=== PATIENT | male | born 1945 | race Caucasian/White ===

== ENCOUNTER 2019-07-30 12:21 | Emergency (ER) | payer MEDICARE ==
[2019-07-30] MEDS ORDERED: Albuterol/Ipratropium 3.0-0.5 MG/3 ML Neb Soln NEB ONE (12:46)
[2019-07-30] MEDS ORDERED: predniSONE 20 MG Tab PO ONE (13:40)
[2019-07-30 14:03] LABS: BLOOD UREA NITROGEN,BUN 20 mg/dL (7.0-18.0); CARBON DIOXIDE,CO2 30.8 mmol/L (21.0-32.0); CHLORIDE,CL 101 mmol/L (98-107); GLUCOSE RANDOM 125 mg/dL (74-106); SODIUM,NA 139 mmol/L (136-148)
--- NOTE | 2019-07-30 15:02 | EDM.PDOC ---
ED HPI GENERAL MEDICAL PROBLEM - General Chief Complaint: Respiratory Problem Stated Complaint: SHORTNESS OF BREATH Time Seen by Provider: 07/30/19 13:30 Source of Information: Reports: Patient History Limitations: Reports: No Limitations - History of Present Illness INITIAL COMMENTS - FREE TEXT/NARRATIVE: Patient is a 74-year-old male with a past medical history of COPD presenting with a chief complaint of worsening shortness of breath. Patient states he has been coughing and increasingly short of breath over the past 2 to 3 days. Patient has been afebrile during this period of time. Patient does not have any pain in his chest at all. Patient complains of wheezing and also having run out of his COPD medications. Patient denies any recent travel, lower extremity swelling, history of DVT or PE. Does report prior history of fluid on his lungs back in the early s which was drained. Is unsure of the etiology of the fluid. In addition to that documented in the HPI above, the additional ROS was obtained : Constitutional: Denies fevers or chills Eyes: Denies vision changes ENMT: Denies sore throat CV: Denies chest pain Resp: D HPI GI: Denies vomiting or diarrhea : Denies painful urination MSK: Denies recent trauma Skin: Denies new rashes Neuro: Denies new numbness or tingling or weakness Endocrine: Denies unexpected weight loss Heme: Denies bleeding disorders I have reviewed the triage vital signs Const: Well nourished, well developed, appears stated age Eyes: PERRL, no conjunctival injection HENT: NCAT, Neck supple without meningismus CV: RRR, Warm, well-perfused extremities RESP: CTAB, Unlabored respiratory effort GI: soft, non-tender, non-distended, no masses MSK: No gross deformities appreciated Skin: Warm, dry. 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 Sensation and motor function of extremities grossly intact. Psych: Appropriate mood and affect Assessment and plan Patient is a 74-year-old male with complaints of shortness of breath. Patient' s labs were noted within normal limits. Patient received steroids and nebulizer treatment with improvement of his shortness of breath. Patient has CT findings concerning for complicated pleural effusion which appears to be chronic in nature given calcifications. At this point, no think these are infectious in nature and will require outpatient work-up and follow-up. Patient does not require admission for respiratory status as his symptoms have improved. Patient given urgency of follow-up and will make an appointment tomorrow. All questions addressed and answered. Patient agrees with plan - Related Data Allergies Allergy/AdvReac Type Severity Reaction Status Date / Time Penicillins Allergy Itching Verified 07/30/19 12:35 Past Medical History Respiratory History: Reports: COPD Musculoskeletal History: Reports: Back Pain, Chronic, Fracture Other Musculoskeletal History: chronic leg pain Social & Family History - Family History Family Medical History: Noncontributory - Tobacco Use Smoking Status *Q: Never Smoker - Recreational Drug Use Recreational Drug Use: No ED ROS GENERAL - Review of Systems Review Of Systems: See Below ED EXAM, GENERAL - Physical Exam Exam: See Below Course - Vital Signs Last Recorded V/S: Last Vital Signs Temp 36.6 C 07/30/19 15:48 Pulse 78 07/30/19 15:48 Resp 24 H 07/30/19 12:35 BP 178/105 H 07/30/19 15:48 Pulse Ox 94 L 07/30/19 15:48 - Orders/Labs/Meds Orders: Active Orders 24 hr Category Date Time Status EKG Documentation Completion [RC] STAT Care 07/30/19 12:45 Active RT Aerosol Therapy [RC] ASDIRECTED Care 07/30/19 12:46 Active Labs: Laboratory Tests 07/30/19 07/30/19 Range/Units 13:13 13:13 WBC 11.12 H (4.0-11.0) K/uL RBC 5.18 (4.50-5.90) M/uL Hgb 15.5 (13.0-17.0) g/dL Hct 47.8 (38.0-50.0) % MCV 92.3 (80.0-98.0) fL MCH 29.9 (27.0-32.0) pg MCHC 32.4 (31.0-37.0) g/dL RDW Std Deviation 45.8 (28.0-62.0) fl RDW Coeff of Tushar 14 (11.0-15.0) % Plt Count 245 (150-400) K/uL MPV 10.80 (7.40-12.00) fL Neut % (Auto) 75.1 (48.0-80.0) % Lymph % (Auto) 14.0 L (16.0-40.0) % [place] % (Auto) 7.6 (0.0-15.0) % Eos % (Auto) 2.9 (0.0-7.0) % Baso % (Auto) 0.4 (0.0-1.5) % Neut # (Auto) 8.4 H (1.4-5.7) K/uL Lymph # (Auto) 1.6 (0.6-2.4) K/uL [place] # (Auto) 0.8 (0.0-0.8) K/uL Eos # (Auto) 0.3 (0.0-0.7) K/uL Baso # (Auto) 0.1 (0.0-0.1) K/uL Nucleated RBC % 0.0 /100WBC Nucleated RBCs # 0 K/uL Sodium 139 (136-148) mmol/L Potassium 4.0 (3.5-5.1) mmol/L Chloride 101 (98-107) mmol/L Carbon Dioxide 30.8 (21.0-32.0) mmol/L BUN 20 H (7.0-18.0) mg/dL Creatinine 0.9 (0.8-1.3) mg/dL Est Cr Clr Drug Dosing TNP Estimated GFR (MDRD) > 60.0 ml/min Glucose 125 H (74-106) mg/dL Calcium 9.4 (8.5-10.1) mg/dL Total Bilirubin 0.5 (0.2-1.0) mg/dL AST 21 (15-37) IU/L ALT 24 (14-63) IU/L Alkaline Phosphatase 86 (46-116) U/L Troponin I < 0.050 (0.000-0.056) ng/mL Total Protein 7.6 (6.4-8.2) g/dL Albumin 3.6 (3.4-5.0) g/dL Globulin 4.0 (2.6-4.0) g/dL Albumin/Globulin Ratio 0.9 (0.9-1.6) Meds: Medications Discontinued Medications Generic Name Dose Route Start Last Admin Trade Name Freq PRN Reason Stop Dose Admin Albuterol/Ipratropium 3 ml 07/30/19 12:46 01/07/20 12:54 Duoneb 3.0-0.5 Mg/3 Ml NEB 07/30/19 12:47 3 ml ONETIME ONE Administration Prednisone 60 mg 07/30/19 13:40 07/30/19 13:48 Prednisone PO 07/30/19 13:41 60 mg ONETIME ONE Administration Departure - Departure Time of Disposition: 16:35 Disposition: Home, Self-Care 01 Clinical Impression: COPD (chronic obstructive pulmonary disease) - Discharge Information Instructions: Chronic Obstructive Pulmonary Disease Exacerbation, [id number] Referrals: PCP,None [Primary Care Provider] - Forms: ED Department Discharge Additional Instructions: The following information is given to patients seen in the emergency department who are being discharged to home. This information is to outline your options for follow-up care. We provide all patients seen in our emergency department with a follow-up referral. The need for follow-up, as well as the timing and circumstances, are variable depending upon the specifics of your emergency department visit. If you don't have a primary care physician on staff, we will provide you with a referral. We always advise you to contact your personal physician following an emergency department visit to inform them of the circumstance of the visit and for follow-up with them and/or the need for any referrals to a consulting specialist. The emergency department will also refer you to a specialist when appropriate. This referral assures that you have the opportunity for follow-up care with a specialist. All of these measure are taken in an effort to provide you with optimal care, which includes your follow-up. Under all circumstances we always encourage you to contact your private physician who remains a resource for coordinating your care. When calling for follow-up care, please make the office aware that this follow-up is from your recent emergency room visit. If for any reason you are refused follow-up, please contact the [facility] Emergency Department at and asked to speak to the emergency department charge nurse. You have findings in your lungs that require further testing and follow-up care. Please schedule an appointment with the family medicine clinic for further evaluation and testing. Sepsis Event Note - Evaluation Sepsis Screening Result: Possible Sepsis Risk - Focused Exam Vital Signs: Vital Signs Temp Pulse Resp BP Pulse Ox 07/30/19 15:48 36.6 C 78 178/105 H 94 L 07/30/19 12:35 35.5 C 97 24 H 204/111 H 93 L Date Exam was Performed: 07/30/19 Time Exam was Performed: 16:30
--- NOTE | 2019-07-30 15:48 | CR ---
Chest: AP portable view of the chest was obtained. Comparison: No previous chest x-ray. Poorly penetrated left lung base is seen. Difficult to exclude underlying pleural or parenchymal process. Lungs otherwise are clear. Heart size appears within normal limits for portable technique. Upper mediastinum is within normal limits for portable technique. Impression: 1. Poorly penetrated left lung base. Cannot exclude underlying pleural or parenchymal process. 2. Portable chest x-ray is otherwise unremarkable. Note: For further evaluation of the chest, consider upright PA and lateral view study. Diagnostic code #2 This report was dictated in [place] Standard Time
--- NOTE | 2019-07-30 16:23 | CT ---
CT chest Technique: Multiple axial sections through the chest were obtained. Intravenous contrast was not utilized. Comparison: No prior chest CT, previous chest x-ray performed earlier on the same day (1:19 PM). Findings: Complicated loculated fluid collections are seen posteriorly within both lung bases showing surrounding calcifications. Findings presumably are chronic. Etiology is otherwise nonspecific. Small portion of the upper abdominal structures are unremarkable. No pericardial thickening is seen. Aorta shows atherosclerotic change without aneurysm. Mediastinum and hilar region show no adenopathy. Lungs show no acute parenchymal change. Bone window settings were reviewed which shows no acute osseous finding. Impression: 1. Complicated loculated fluid collections posteriorly within both lung bases with surrounding peripheral calcifications. As mentioned above, findings presumably are chronic but are otherwise nonspecific regarding etiology. 2. Nothing acute is otherwise seen. Diagnostic code #3 This report was dictated in [place] Standard Time
== END 2019-07-30 16:53 | disposition home or self-care (01) ==
LOC: MW.ED 12:21
DX: J44.9 Chronic obstructive pulmonary disease, unspecified (principal); Z88.0 Allergy status to penicillin
CPT/HCPCS: 36415; 71045; 71250; 80053; 84484; 85025; 93005; 94640; 99285; A9270; 99283; J7620-GY

== ENCOUNTER 2023-08-28 13:09 | Inpatient (IN) | payer MEDICARE ==
[2023-08-28] MEDS: Ipratropium 0.02% 0.5 MG/2.5 ML Neb Soln NEB ONE (13:34)
[2023-08-28] MEDS: Albuterol/Ipratropium 3.0-0.5 MG/3 ML Neb Soln NEB ONE (13:34)
[2023-08-28 13:39] LABS: BASOPHILS ABSOLUTE AUTO 0.02 K/uL (0.00-0.20); BASOPHILS PERCENT AUTO 0.2 % (0.0-1.0); EOSINOPHILS ABSOLUTE AUTO 0.14 K/uL (0.00-0.45); EOSINOPHILS PERCENT AUTO 1.5 % (0.0-6.0); HEMATOCRIT 42.4 % (42.0-52.0); HEMOGLOBIN 12.7 g/dL (14.0-18.0); IMMATURE GRAN ABSOLUTE AUTO 0.06 K/uL (0.00-0.05); IMMATURE GRAN PERCENT AUTO 0.6 % (0.0-0.4); LYMPHOCYTES ABSOLUTE AUTO 0.74 K/uL (1.00-4.80); LYMPHOCYTES PERCENT AUTO 7.8 % (24.0-44.0); MEAN CORPUSCULAR HEMOGLOBIN 28.5 pg (28.0-32.0); MEAN CORPUSCULAR VOLUME 95.1 fL (83.0-99.0); MONOCYTES ABSOLUTE AUTO 1.22 K/uL (0.00-0.80); MONOCYTES PERCENT AUTO 12.8 % (0.0-8.0); NEUTROPHILS ABSOLUTE AUTO 7.34 K/uL (1.80-7.70); NEUTROPHILS PERCENT AUTO 77.1 % (41.0-71.0); PLATELET COUNT,PLT 164 K/uL (150-400); RED BLOOD CELL COUNT 4.46 M/uL (4.52-5.90); WHITE BLOOD CELL COUNT,WBC 9.52 K/uL (3.9-11.3)
[2023-08-28 13:40] LABS: BASE EXCESS VENOUS 12.8 (-2.0-3.0); PH,VENOUS 7.36 (7.31-7.41)
[2023-08-28 13:59] LABS: INR 1.21 (0.86-1.11)
[2023-08-28 14:11] LABS: A/G RATIO 0.8 (0.9-1.6); ALBUMIN 3.1 g/dL (3.4-5.0); BILIRUBIN TOTAL 0.8 mg/dL (0.2-1.0); CALCIUM 9.4 mg/dL (8.5-10.1); CARBON DIOXIDE,CO2 37.7 mmol/L (21.0-32.0); CREATININE 0.8 mg/dL (0.8-1.3); EST CRCL DRUG DOSING (CG) 88.78 mL/min; POTASSIUM,K 4.3 mmol/L (3.5-5.1)
[2023-08-28] MEDS: methylPREDNISolone Sodium Succinate 125 MG/2 ML SDV IVPUSH ONE (14:14)
[2023-08-28] MEDS: Levofloxacin/Dextrose 5%-Water 500 MG in Premix Bag 1 BAG IV ONE (14:14)
[2023-08-28] MEDS: Sodium Chloride 0.9% 10 ML Syringe FLUSH PRN (14:15)
[2023-08-28] MEDS: Sodium Chloride 0.9% 2.5 ML Syringe FLUSH PRN (14:16)
[2023-08-28 14:17] LABS: CORONAVIRUS COVID-19 NAA NEGATIVE (NEGATIVE); INFLUENZA A NAA NEGATIVE (NEGATIVE); INFLUENZA B NAA NEGATIVE (NEGATIVE); RESPIRATORY SYNCYTIAL VIR NAA NEGATIVE (NEGATIVE)
[2023-08-28] MEDS ORDERED: Nitroglycerin 0.4 MG/HR Transdermal Patch TRDERM SCH (15:45)
[2023-08-28] MEDS: Furosemide 40 MG/4 ML VIAL IVPUSH ONE (16:05)
[2023-08-28] MEDS: Nitroglycerin 0.2 MG/HR Transdermal Patch TRDERM SCH (16:05)
[2023-08-28] MEDS ORDERED: Acetaminophen 325 MG Tab PO PRN (16:40)
[2023-08-28] MEDS ORDERED: Fluticasone NASAL Spray 16 GM Bottle NASBOTH PRN (16:50)
[2023-08-28 17:08] LABS: TSH ULTRASENSITIVE 1.62 uIU/mL (0.36-3.74)
[2023-08-28] MEDS: Pantoprazole 40 MG in Sodium Chloride 0.9% 10 ML IVPUSH SCH (18:11)
[2023-08-28] MEDS: Azithromycin 500 MG in Sodium Chloride 0.9% 250 ML IV SCH (18:11)
[2023-08-28] MEDS: Enoxaparin 40 MG/0.4 ML Syringe SUBCUT SCH (18:11)
[2023-08-28] MEDS: Albuterol/Ipratropium 3.0-0.5 MG/3 ML Neb Soln NEB SCH (18:58)
[2023-08-28] MEDS: Metoprolol Tartrate 50 MG Tab PO SCH (18:58)
[2023-08-28 20:14] LABS: LACTIC ACID 0.7 mmol/L (0.4-2.0)
[2023-08-28] MEDS: Diltiazem 25 MG/5 ML SDV IVPUSH ONE (21:26)
[2023-08-28] MEDS: Pravastatin 40 MG Tab PO SCH (21:29)
[2023-08-28] MEDS: Diltiazem 100 MG in Sodium Chloride 0.9% 100 ML IV SCH (22:03)
[2023-08-28] MEDS: Apixaban 5 MG Tab PO SCH (22:44)
[2023-08-28 23:30] LABS: BASE EXCESS ARTERIAL 10.6 (-2.0-3.0); BICARBONATE,ARTERIAL 38 mEq/L (22-26); PCO2 ARTERIAL 67 mmHG (35-45); PO2 ARTERIAL 78 mmHG (80-105)
[2023-08-29] MEDS: Metoprolol Tartrate 25 MG Tab PO ONE (10:59)
[2023-08-29 11:13] LABS: CALCIUM 9.1 mg/dL (8.5-10.1); CARBON DIOXIDE,CO2 37.6 mmol/L (21.0-32.0); CREATININE 1.1 mg/dL (0.8-1.3); EST CRCL DRUG DOSING (CG) 64.57 mL/min; POTASSIUM,K 4.7 mmol/L (3.5-5.1)
[2023-08-29 11:17] LABS: BASOPHILS ABSOLUTE AUTO 0.01 K/uL (0.00-0.20); BASOPHILS PERCENT AUTO 0.1 % (0.0-1.0); HEMATOCRIT 41.2 % (42.0-52.0); HEMOGLOBIN 12.4 g/dL (14.0-18.0); IMMATURE GRAN ABSOLUTE AUTO 0.05 K/uL (0.00-0.05); IMMATURE GRAN PERCENT AUTO 0.4 % (0.0-0.4); LYMPHOCYTES ABSOLUTE AUTO 0.45 K/uL (1.00-4.80); MEAN CORPUSCULAR HEMOGLOBIN 28.6 pg (28.0-32.0); MEAN CORPUSCULAR HGB CONC 30.1 g/dL (32.0-36.0); MEAN CORPUSCULAR VOLUME 94.9 fL (83.0-99.0); MONOCYTES ABSOLUTE AUTO 0.78 K/uL (0.00-0.80); NEUTROPHILS ABSOLUTE AUTO 9.92 K/uL (1.80-7.70); NEUTROPHILS PERCENT AUTO 88.5 % (41.0-71.0); PLATELET COUNT,PLT 194 K/uL (150-400); RED BLOOD CELL COUNT 4.34 M/uL (4.52-5.90); WHITE BLOOD CELL COUNT,WBC 11.21 K/uL (3.9-11.3)
[2023-08-29] MEDS: Furosemide 40 MG/4 ML VIAL IVPUSH SCH (13:16)
[2023-08-29] MEDS: Sertraline 100 MG Tab PO SCH (13:17)
[2023-08-29] MEDS: methylPREDNISolone Sodium Succinate 40 MG/1 ML SDV IVPUSH SCH (13:17)
[2023-08-29] MEDS: cefTRIAXone 1 GM in Sodium Chloride 0.9% 50 ML IV SCH (13:17)
[2023-08-29] MEDS: Metoprolol Tartrate 25 MG Tab PO SCH (18:31)
[2023-08-29 19:36] LABS: CALCIUM 9.5 mg/dL (8.5-10.1); CARBON DIOXIDE,CO2 35.1 mmol/L (21.0-32.0); CREATININE 1.6 mg/dL (0.8-1.3); EST CRCL DRUG DOSING (CG) 44.39 mL/min; POTASSIUM,K 4.2 mmol/L (3.5-5.1)
[2023-08-29] MEDS ORDERED: Metoprolol Tartrate 50 MG Tab PO SCH (21:00)
[2023-08-30 06:23] LABS: BASOPHILS ABSOLUTE AUTO 0.01 K/uL (0.00-0.20); BASOPHILS PERCENT AUTO 0.1 % (0.0-1.0); EOSINOPHILS ABSOLUTE AUTO 0.01 K/uL (0.00-0.45); EOSINOPHILS PERCENT AUTO 0.1 % (0.0-6.0); HEMATOCRIT 40.8 % (42.0-52.0); HEMOGLOBIN 12.1 g/dL (14.0-18.0); IMMATURE GRAN ABSOLUTE AUTO 0.07 K/uL (0.00-0.05); IMMATURE GRAN PERCENT AUTO 0.4 % (0.0-0.4); LYMPHOCYTES ABSOLUTE AUTO 0.72 K/uL (1.00-4.80); LYMPHOCYTES PERCENT AUTO 4.5 % (24.0-44.0); MEAN CORPUSCULAR HEMOGLOBIN 28.5 pg (28.0-32.0); MEAN CORPUSCULAR HGB CONC 29.7 g/dL (32.0-36.0); MEAN CORPUSCULAR VOLUME 96.2 fL (83.0-99.0); MEAN PLATELET VOLUME 11.1 fL (9.4-12.4); MONOCYTES ABSOLUTE AUTO 1.15 K/uL (0.00-0.80); MONOCYTES PERCENT AUTO 7.2 % (0.0-8.0); NEUTROPHILS ABSOLUTE AUTO 14.11 K/uL (1.80-7.70); NEUTROPHILS PERCENT AUTO 87.7 % (41.0-71.0); PLATELET COUNT,PLT 213 K/uL (150-400); RED BLOOD CELL COUNT 4.24 M/uL (4.52-5.90); WHITE BLOOD CELL COUNT,WBC 16.07 K/uL (3.9-11.3)
[2023-08-30 06:39] LABS: CALCIUM 9.1 mg/dL (8.5-10.1); CARBON DIOXIDE,CO2 37.3 mmol/L (21.0-32.0); CREATININE 1.5 mg/dL (0.8-1.3); EST CRCL DRUG DOSING (CG) 47.35 mL/min; POTASSIUM,K 4.3 mmol/L (3.5-5.1)
[2023-08-31 05:25] LABS: BASOPHILS ABSOLUTE AUTO 0.01 K/uL (0.00-0.20); BASOPHILS PERCENT AUTO 0.1 % (0.0-1.0); EOSINOPHILS ABSOLUTE AUTO 0.01 K/uL (0.00-0.45); EOSINOPHILS PERCENT AUTO 0.1 % (0.0-6.0); IMMATURE GRAN ABSOLUTE AUTO 0.05 K/uL (0.00-0.05); IMMATURE GRAN PERCENT AUTO 0.3 % (0.0-0.4); LYMPHOCYTES ABSOLUTE AUTO 0.79 K/uL (1.00-4.80); MEAN CORPUSCULAR HEMOGLOBIN 28.4 pg (28.0-32.0); MEAN CORPUSCULAR VOLUME 94.6 fL (83.0-99.0); MEAN PLATELET VOLUME 11.3 fL (9.4-12.4); MONOCYTES PERCENT AUTO 8.2 % (0.0-8.0); NEUTROPHILS ABSOLUTE AUTO 13.74 K/uL (1.80-7.70); NEUTROPHILS PERCENT AUTO 86.3 % (41.0-71.0); PLATELET COUNT,PLT 205 K/uL (150-400); RED BLOOD CELL COUNT 4.23 M/uL (4.52-5.90)
[2023-08-31 05:58] LABS: CALCIUM 9.1 mg/dL (8.5-10.1); CARBON DIOXIDE,CO2 35.4 mmol/L (21.0-32.0); CREATININE 1.4 mg/dL (0.8-1.3); EST CRCL DRUG DOSING (CG) 50.73 mL/min; POTASSIUM,K 4.6 mmol/L (3.5-5.1)
[2023-08-31] MEDS: Apixaban 5 MG Tab PO SCH (09:15)
[2023-08-31] MEDS: predniSONE 10 MG Tab PO SCH (09:15)
[2023-08-31] MEDS: Furosemide 40 MG/4 ML VIAL IVPUSH SCH (09:34)
[2023-08-31] MEDS ORDERED: Metoprolol Tartrate 25 MG Tab PO ONE (09:56)
[2023-08-31] MEDS: Metoprolol Tartrate 25 MG Tab PO ONE (10:28)
[2023-08-31] MEDS ORDERED: Metoprolol Tartrate 50 MG Tab PO SCH ×2 (10:30→21:00)
[2023-08-31] MEDS: Metoprolol Tartrate 5 MG/5 ML SDV IVPUSH ONE (16:07)
[2023-08-31] MEDS: Metoprolol Tartrate 50 MG Tab PO SCH (20:17)
[2023-09-01 06:36] LABS: EOSINOPHILS ABSOLUTE AUTO 0.01 K/uL (0.00-0.45); EOSINOPHILS PERCENT AUTO 0.1 % (0.0-6.0); HEMATOCRIT 44.1 % (42.0-52.0); HEMOGLOBIN 12.9 g/dL (14.0-18.0); IMMATURE GRAN ABSOLUTE AUTO 0.06 K/uL (0.00-0.05); IMMATURE GRAN PERCENT AUTO 0.5 % (0.0-0.4); LYMPHOCYTES ABSOLUTE AUTO 0.74 K/uL (1.00-4.80); LYMPHOCYTES PERCENT AUTO 6.2 % (24.0-44.0); MEAN CORPUSCULAR HEMOGLOBIN 28.3 pg (28.0-32.0); MEAN CORPUSCULAR HGB CONC 29.3 g/dL (32.0-36.0); MEAN CORPUSCULAR VOLUME 96.7 fL (83.0-99.0); MEAN PLATELET VOLUME 11.3 fL (9.4-12.4); MONOCYTES ABSOLUTE AUTO 1.18 K/uL (0.00-0.80); NEUTROPHILS ABSOLUTE AUTO 9.86 K/uL (1.80-7.70); NEUTROPHILS PERCENT AUTO 83.2 % (41.0-71.0); PLATELET COUNT,PLT 201 K/uL (150-400); RED BLOOD CELL COUNT 4.56 M/uL (4.52-5.90); WHITE BLOOD CELL COUNT,WBC 11.85 K/uL (3.9-11.3)
[2023-09-01 07:01] LABS: CALCIUM 9.4 mg/dL (8.5-10.1); CREATININE 1.3 mg/dL (0.8-1.3); EST CRCL DRUG DOSING (CG) 54.63 mL/min; POTASSIUM,K 4.5 mmol/L (3.5-5.1)
[2023-09-01] MEDS: Apixaban 5 MG Tab PO SCH (09:10)
[2023-09-01] MEDS: Diltiazem IR 30 MG Tab PO SCH ×2 (10:56→11:30)
[2023-09-01] MEDS: Albuterol/Ipratropium 3.0-0.5 MG/3 ML Neb Soln NEB SCH (12:55)
[2023-09-01] MEDS: Ondansetron 4 MG/2 ML SDV IVPUSH PRN (12:57)
[2023-09-01] MEDS: Pantoprazole 40 MG Tab.CR PO SCH (20:14)
[2023-09-02 06:28] LABS: BASOPHILS ABSOLUTE AUTO 0.01 K/uL (0.00-0.20); BASOPHILS PERCENT AUTO 0.1 % (0.0-1.0); EOSINOPHILS ABSOLUTE AUTO 0.01 K/uL (0.00-0.45); EOSINOPHILS PERCENT AUTO 0.1 % (0.0-6.0); HEMATOCRIT 49.1 % (42.0-52.0); HEMOGLOBIN 13.8 g/dL (14.0-18.0); IMMATURE GRAN ABSOLUTE AUTO 0.07 K/uL (0.00-0.05); IMMATURE GRAN PERCENT AUTO 0.5 % (0.0-0.4); LYMPHOCYTES ABSOLUTE AUTO 0.63 K/uL (1.00-4.80); LYMPHOCYTES PERCENT AUTO 4.7 % (24.0-44.0); MEAN CORPUSCULAR HEMOGLOBIN 28.5 pg (28.0-32.0); MEAN CORPUSCULAR HGB CONC 28.1 g/dL (32.0-36.0); MEAN CORPUSCULAR VOLUME 101.4 fL (83.0-99.0); MEAN PLATELET VOLUME 11.1 fL (9.4-12.4); MONOCYTES ABSOLUTE AUTO 1.42 K/uL (0.00-0.80); MONOCYTES PERCENT AUTO 10.7 % (0.0-8.0); NEUTROPHILS ABSOLUTE AUTO 11.17 K/uL (1.80-7.70); NEUTROPHILS PERCENT AUTO 83.9 % (41.0-71.0); PLATELET COUNT,PLT 279 K/uL (150-400); RED BLOOD CELL COUNT 4.84 M/uL (4.52-5.90); WHITE BLOOD CELL COUNT,WBC 13.31 K/uL (3.9-11.3)
[2023-09-02 06:42] LABS: CALCIUM 9.3 mg/dL (8.5-10.1); CARBON DIOXIDE,CO2 41.1 mmol/L (21.0-32.0); CREATININE 1.6 mg/dL (0.8-1.3); EST CRCL DRUG DOSING (CG) 44.39 mL/min; POTASSIUM,K 6.1 mmol/L (3.5-5.1)
[2023-09-02 06:52] LABS: PCO2 ARTERIAL > 98 mmHG (35-45); PO2 ARTERIAL 48 mmHG (80-105)
[2023-09-02] MEDS ORDERED: Furosemide 40 MG/4 ML VIAL IVPUSH STA (07:46)
[2023-09-02] MEDS ORDERED: 50% Dextrose in Water 50 ML Syringe IVPUSH PRN (07:46)
[2023-09-02] MEDS ORDERED: Sodium Chloride 0.9% 10 ML Syringe FLUSH PRN (07:46)
[2023-09-02] MEDS ORDERED: Sodium Chloride 0.9% 2.5 ML Syringe FLUSH PRN (07:46)
[2023-09-02] MEDS ORDERED: Glucagon,Human Recombinant 1 MG Vial IM PRN (07:46)
[2023-09-02] MEDS: 50% Dextrose in Water 50 ML Syringe IV ONE (08:32)
[2023-09-02] MEDS: Insulin Regular, Human 100 Units/ML 10 ML Vial IVPUSH ONE ×2 (08:36→09:59)
[2023-09-02] MEDS: Furosemide 40 MG/4 ML VIAL IVPUSH STA (08:47)
[2023-09-02 08:55] LABS: PCO2 ARTERIAL > 98 mmHG (35-45); PO2 ARTERIAL 127 mmHG (80-105)
[2023-09-02] MEDS: 50% Dextrose in Water 50 ML Syringe IVPUSH ONE (09:59)
[2023-09-02 10:05] LABS: PCO2 ARTERIAL > 98 mmHG (35-45); PO2 ARTERIAL 111 mmHG (80-105)
[2023-09-02] MEDS: methylPREDNISolone Sodium Succinate 40 MG/1 ML SDV IVPUSH SCH (10:08)
[2023-09-02 12:55] LABS: PCO2 ARTERIAL > 98 mmHG (35-45); PO2 ARTERIAL 112 mmHG (80-105)
[2023-09-02 14:21] LABS: CALCIUM 9.3 mg/dL (8.5-10.1); CARBON DIOXIDE,CO2 42.4 mmol/L (21.0-32.0); CREATININE 1.9 mg/dL (0.8-1.3); EST CRCL DRUG DOSING (CG) 37.38 mL/min; POTASSIUM,K 5.5 mmol/L (3.5-5.1)
[2023-09-02 15:42] LABS: BASE EXCESS ARTERIAL 11.6 (-2.0-3.0); BICARBONATE,ARTERIAL 42 mEq/L (22-26); PCO2 ARTERIAL 86 mmHG (35-45); PO2 ARTERIAL 92 mmHG (80-105)
[2023-09-03 06:36] LABS: HEMATOCRIT 42.1 % (42.0-52.0); HEMOGLOBIN 12.4 g/dL (14.0-18.0); IMMATURE GRAN ABSOLUTE AUTO 0.04 K/uL (0.00-0.05); IMMATURE GRAN PERCENT AUTO 0.4 % (0.0-0.4); LYMPHOCYTES ABSOLUTE AUTO 0.26 K/uL (1.00-4.80); LYMPHOCYTES PERCENT AUTO 2.5 % (24.0-44.0); MEAN CORPUSCULAR HEMOGLOBIN 28.5 pg (28.0-32.0); MEAN CORPUSCULAR HGB CONC 29.5 g/dL (32.0-36.0); MEAN CORPUSCULAR VOLUME 96.8 fL (83.0-99.0); MEAN PLATELET VOLUME 11.6 fL (9.4-12.4); MONOCYTES ABSOLUTE AUTO 0.28 K/uL (0.00-0.80); MONOCYTES PERCENT AUTO 2.7 % (0.0-8.0); NEUTROPHILS ABSOLUTE AUTO 9.93 K/uL (1.80-7.70); NEUTROPHILS PERCENT AUTO 94.4 % (41.0-71.0); PLATELET COUNT,PLT 189 K/uL (150-400); RED BLOOD CELL COUNT 4.35 M/uL (4.52-5.90); WHITE BLOOD CELL COUNT,WBC 10.51 K/uL (3.9-11.3)
[2023-09-03 06:56] LABS: CALCIUM 9.2 mg/dL (8.5-10.1); CARBON DIOXIDE,CO2 40.2 mmol/L (21.0-32.0); CREATININE 2.2 mg/dL (0.8-1.3); EST CRCL DRUG DOSING (CG) 32.28 mL/min; POTASSIUM,K 5.8 mmol/L (3.5-5.1)
[2023-09-03 07:32] LABS: BASE EXCESS ARTERIAL 10.8 (-2.0-3.0); BICARBONATE,ARTERIAL 40 mEq/L (22-26); PCO2 ARTERIAL 80 mmHG (35-45); PO2 ARTERIAL 104 mmHG (80-105)
[2023-09-03] MEDS: Metoprolol Tartrate 25 MG Tab PO SCH (09:16)
[2023-09-03] MEDS: Sodium Zirconium Cyclosilicate 10 GM Packet PO ONE (09:17)
[2023-09-03] MEDS: Digoxin 500 MCG/2 ML Amp IVPUSH ONE (10:31)
[2023-09-03] MEDS ORDERED: Sodium Chloride 0.9% 500 ML IV SCH (14:00)
[2023-09-03] MEDS: Sodium Chloride 0.9% 500 ML IV SCH (14:09)
[2023-09-03] MEDS: Hydrocolloid Dressing 4x4 Bandage TOP ONE (18:28)
[2023-09-04 06:09] LABS: BASOPHILS ABSOLUTE AUTO 0.01 K/uL (0.00-0.20); BASOPHILS PERCENT AUTO 0.1 % (0.0-1.0); EOSINOPHILS ABSOLUTE AUTO 0.01 K/uL (0.00-0.45); EOSINOPHILS PERCENT AUTO 0.1 % (0.0-6.0); HEMATOCRIT 41.6 % (42.0-52.0); HEMOGLOBIN 12.6 g/dL (14.0-18.0); IMMATURE GRAN ABSOLUTE AUTO 0.05 K/uL (0.00-0.05); IMMATURE GRAN PERCENT AUTO 0.4 % (0.0-0.4); LYMPHOCYTES ABSOLUTE AUTO 0.29 K/uL (1.00-4.80); LYMPHOCYTES PERCENT AUTO 2.4 % (24.0-44.0); MEAN CORPUSCULAR HEMOGLOBIN 28.7 pg (28.0-32.0); MEAN CORPUSCULAR HGB CONC 30.3 g/dL (32.0-36.0); MEAN CORPUSCULAR VOLUME 94.8 fL (83.0-99.0); MEAN PLATELET VOLUME 11.7 fL (9.4-12.4); MONOCYTES ABSOLUTE AUTO 0.53 K/uL (0.00-0.80); MONOCYTES PERCENT AUTO 4.4 % (0.0-8.0); NEUTROPHILS ABSOLUTE AUTO 11.28 K/uL (1.80-7.70); NEUTROPHILS PERCENT AUTO 92.6 % (41.0-71.0); PLATELET COUNT,PLT 179 K/uL (150-400); RED BLOOD CELL COUNT 4.39 M/uL (4.52-5.90); WHITE BLOOD CELL COUNT,WBC 12.17 K/uL (3.9-11.3)
[2023-09-04 06:26] LABS: CALCIUM 9.2 mg/dL (8.5-10.1); CARBON DIOXIDE,CO2 38.9 mmol/L (21.0-32.0); CREATININE 2.1 mg/dL (0.8-1.3); EST CRCL DRUG DOSING (CG) 33.82 mL/min; POTASSIUM,K 5.1 mmol/L (3.5-5.1)
[2023-09-04] MEDS: Metoprolol Tartrate 50 MG Tab PO SCH (09:10)
[2023-09-04 11:22] LABS: CREATININE,URINE RAND 83.8 mg/dL
[2023-09-04 11:26] LABS: APPEARANCE,URINE SLT CLOUDY; BILIRUBIN,URINE NEGATIVE (NEGATIVE); COLOR,URINE YELLOW; GLUCOSE,URINE NEGATIVE (NEGATIVE); KETONES,URINE NEGATIVE (NEGATIVE); LEUKOCYTE ESTERASE,URINE NEGATIVE (NEGATIVE); NITRITE,URINE NEGATIVE (NEGATIVE); OCCULT BLOOD,URINE LARGE (NEGATIVE); PROTEIN,URINE TRACE mg/dL (NEGATIVE); UROBILINOGEN,URINE 0.2 EU/dL (<2.0)
[2023-09-04 11:46] LABS: BACTERIA,URINE FEW (NEGATIVE); EPITHELIAL CELLS,URINE OCCASIONAL (NONE-FEW); RBC,URINE 15-25 (0-2/HPF)
[2023-09-04 12:35] LABS: BASE EXCESS ARTERIAL 10.7 (-2.0-3.0); BICARBONATE,ARTERIAL 38 mEq/L (22-26); PCO2 ARTERIAL 64 mmHG (35-45); PO2 ARTERIAL 76 mmHG (80-105)
[2023-09-04] MEDS: methylPREDNISolone Sodium Succinate 40 MG/1 ML SDV IVPUSH SCH (20:25)
[2023-09-05 05:42] LABS: BASOPHILS ABSOLUTE AUTO 0.01 K/uL (0.00-0.20); BASOPHILS PERCENT AUTO 0.1 % (0.0-1.0); EOSINOPHILS ABSOLUTE AUTO 0.03 K/uL (0.00-0.45); EOSINOPHILS PERCENT AUTO 0.2 % (0.0-6.0); HEMATOCRIT 41.9 % (42.0-52.0); HEMOGLOBIN 12.8 g/dL (14.0-18.0); IMMATURE GRAN ABSOLUTE AUTO 0.05 K/uL (0.00-0.05); IMMATURE GRAN PERCENT AUTO 0.4 % (0.0-0.4); LYMPHOCYTES ABSOLUTE AUTO 0.39 K/uL (1.00-4.80); MEAN CORPUSCULAR HEMOGLOBIN 28.1 pg (28.0-32.0); MEAN CORPUSCULAR HGB CONC 30.5 g/dL (32.0-36.0); MEAN CORPUSCULAR VOLUME 91.9 fL (83.0-99.0); MEAN PLATELET VOLUME 11.3 fL (9.4-12.4); MONOCYTES ABSOLUTE AUTO 0.59 K/uL (0.00-0.80); MONOCYTES PERCENT AUTO 4.5 % (0.0-8.0); NEUTROPHILS ABSOLUTE AUTO 12.01 K/uL (1.80-7.70); NEUTROPHILS PERCENT AUTO 91.8 % (41.0-71.0); PLATELET COUNT,PLT 173 K/uL (150-400); RED BLOOD CELL COUNT 4.56 M/uL (4.52-5.90); WHITE BLOOD CELL COUNT,WBC 13.08 K/uL (3.9-11.3)
[2023-09-05 06:05] LABS: A/G RATIO 0.9 (0.9-1.6); ALBUMIN 2.8 g/dL (3.4-5.0); BILIRUBIN TOTAL 0.4 mg/dL (0.2-1.0); CALCIUM 8.9 mg/dL (8.5-10.1); CARBON DIOXIDE,CO2 36.6 mmol/L (21.0-32.0); EST CRCL DRUG DOSING (CG) 35.51 mL/min; POTASSIUM,K 4.6 mmol/L (3.5-5.1); PROTEIN TOTAL,TP 5.8 g/dL (6.4-8.2)
[2023-09-05] MEDS: Amiodarone 200 MG Tab PO SCH (11:00)
[2023-09-06 06:23] LABS: HEMATOCRIT 42.4 % (42.0-52.0); HEMOGLOBIN 12.9 g/dL (14.0-18.0); MEAN CORPUSCULAR HGB CONC 30.4 g/dL (32.0-36.0); MEAN CORPUSCULAR VOLUME 92.2 fL (83.0-99.0); MEAN PLATELET VOLUME 11.3 fL (9.4-12.4); PLATELET COUNT,PLT 193 K/uL (150-400); WHITE BLOOD CELL COUNT,WBC 13.89 K/uL (3.9-11.3)
[2023-09-06 06:37] LABS: LYMPHOCYTES ABSOLUTE MAN 0.42 K/uL (1.00-4.80); LYMPHOCYTES PERCENT MAN 3 % (24-44); MONOCYTES ABSOLUTE MAN 1.53 K/uL (0.00-0.80); MONOCYTES PERCENT MAN 11 % (0-8); SEG NEUTROPHILS ABSOLUTE MAN 11.95 K/uL (1.80-7.70); SEG NEUTROPHILS PERCENT MAN 86 % (41-71)
[2023-09-06 06:47] LABS: CALCIUM 9.2 mg/dL (8.5-10.1); CARBON DIOXIDE,CO2 41.4 mmol/L (21.0-32.0); CREATININE 1.8 mg/dL (0.8-1.3); EST CRCL DRUG DOSING (CG) 39.46 mL/min; MAGNESIUM 2.7 mg/dL (1.8-2.4); POTASSIUM,K 5.1 mmol/L (3.5-5.1)
[2023-09-06] MEDS: methylPREDNISolone Sodium Succinate 40 MG/1 ML SDV IVPUSH SCH (08:42)
[2023-09-06] MEDS: Pravastatin 40 MG Tab PO SCH (20:18)
[2023-09-06] MEDS ORDERED: Fluticasone NASAL Spray 16 GM Bottle NASBOTH SCH (21:00)
[2023-09-06] MEDS ORDERED: FORMOTEROL FUMARATE INH SCH (21:21)
[2023-09-06] MEDS ORDERED: BUDESONIDE INH SCH (21:21)
[2023-09-06] MEDS: FORMOTEROL FUMARATE INH SCH ×2 (21:37→22:08)
[2023-09-06] MEDS: BUDESONIDE INH SCH ×2 (21:37→22:08)
[2023-09-06] MEDS: Fluticasone NASAL Spray 16 GM Bottle NASBOTH PRN (21:47)
[2023-09-07 05:29] LABS: EOSINOPHILS ABSOLUTE AUTO 0.05 K/uL (0.00-0.45); EOSINOPHILS PERCENT AUTO 0.5 % (0.0-6.0); HEMATOCRIT 42.6 % (42.0-52.0); HEMOGLOBIN 12.7 g/dL (14.0-18.0); IMMATURE GRAN ABSOLUTE AUTO 0.06 K/uL (0.00-0.05); IMMATURE GRAN PERCENT AUTO 0.6 % (0.0-0.4); LYMPHOCYTES ABSOLUTE AUTO 0.59 K/uL (1.00-4.80); LYMPHOCYTES PERCENT AUTO 5.4 % (24.0-44.0); MEAN CORPUSCULAR HGB CONC 29.8 g/dL (32.0-36.0); MEAN CORPUSCULAR VOLUME 93.8 fL (83.0-99.0); MEAN PLATELET VOLUME 11.4 fL (9.4-12.4); MONOCYTES ABSOLUTE AUTO 1.39 K/uL (0.00-0.80); MONOCYTES PERCENT AUTO 12.8 % (0.0-8.0); NEUTROPHILS ABSOLUTE AUTO 8.77 K/uL (1.80-7.70); NEUTROPHILS PERCENT AUTO 80.7 % (41.0-71.0); PLATELET COUNT,PLT 150 K/uL (150-400); RED BLOOD CELL COUNT 4.54 M/uL (4.52-5.90); WHITE BLOOD CELL COUNT,WBC 10.86 K/uL (3.9-11.3)
[2023-09-07 05:58] LABS: CALCIUM 8.6 mg/dL (8.5-10.1); CARBON DIOXIDE,CO2 39.3 mmol/L (21.0-32.0); CREATININE 1.6 mg/dL (0.8-1.3); EST CRCL DRUG DOSING (CG) 44.39 mL/min; MAGNESIUM 2.5 mg/dL (1.8-2.4); POTASSIUM,K 4.7 mmol/L (3.5-5.1)
[2023-09-07] MEDS: predniSONE 20 MG Tab PO SCH (08:10)
[2023-09-07] MEDS: Sertraline 100 MG Tab PO SCH (08:12)
[2023-09-08 06:14] LABS: BASOPHILS ABSOLUTE AUTO 0.02 K/uL (0.00-0.20); BASOPHILS PERCENT AUTO 0.2 % (0.0-1.0); EOSINOPHILS PERCENT AUTO 0.8 % (0.0-6.0); HEMATOCRIT 40.4 % (42.0-52.0); HEMOGLOBIN 12.3 g/dL (14.0-18.0); IMMATURE GRAN PERCENT AUTO 0.8 % (0.0-0.4); LYMPHOCYTES PERCENT AUTO 5.5 % (24.0-44.0); MEAN CORPUSCULAR HEMOGLOBIN 28.5 pg (28.0-32.0); MEAN CORPUSCULAR HGB CONC 30.4 g/dL (32.0-36.0); MEAN CORPUSCULAR VOLUME 93.7 fL (83.0-99.0); MEAN PLATELET VOLUME 12.1 fL (9.4-12.4); MONOCYTES ABSOLUTE AUTO 1.37 K/uL (0.00-0.80); MONOCYTES PERCENT AUTO 10.7 % (0.0-8.0); NEUTROPHILS ABSOLUTE AUTO 10.49 K/uL (1.80-7.70); PLATELET COUNT,PLT 148 K/uL (150-400); RED BLOOD CELL COUNT 4.31 M/uL (4.52-5.90); WHITE BLOOD CELL COUNT,WBC 12.78 K/uL (3.9-11.3)
[2023-09-08 06:41] LABS: CALCIUM 9.1 mg/dL (8.5-10.1); CARBON DIOXIDE,CO2 39.8 mmol/L (21.0-32.0); CREATININE 1.7 mg/dL (0.8-1.3); EST CRCL DRUG DOSING (CG) 41.78 mL/min; MAGNESIUM 2.4 mg/dL (1.8-2.4); POTASSIUM,K 4.8 mmol/L (3.5-5.1)
[2023-09-08] MEDS: Digoxin 500 MCG/2 ML Amp IVPUSH ONE (10:56)
[2023-09-08] MEDS: Digoxin 500 MCG/2 ML Amp IVPUSH SCH (16:14)
[2023-09-09 06:00] LABS: BASOPHILS ABSOLUTE AUTO 0.01 K/uL (0.00-0.20); BASOPHILS PERCENT AUTO 0.1 % (0.0-1.0); EOSINOPHILS ABSOLUTE AUTO 0.06 K/uL (0.00-0.45); EOSINOPHILS PERCENT AUTO 0.6 % (0.0-6.0); HEMATOCRIT 40.3 % (42.0-52.0); IMMATURE GRAN ABSOLUTE AUTO 0.06 K/uL (0.00-0.05); IMMATURE GRAN PERCENT AUTO 0.6 % (0.0-0.4); LYMPHOCYTES ABSOLUTE AUTO 0.61 K/uL (1.00-4.80); LYMPHOCYTES PERCENT AUTO 5.6 % (24.0-44.0); MEAN CORPUSCULAR HEMOGLOBIN 27.8 pg (28.0-32.0); MEAN CORPUSCULAR HGB CONC 29.8 g/dL (32.0-36.0); MEAN CORPUSCULAR VOLUME 93.5 fL (83.0-99.0); MONOCYTES ABSOLUTE AUTO 0.82 K/uL (0.00-0.80); MONOCYTES PERCENT AUTO 7.6 % (0.0-8.0); NEUTROPHILS ABSOLUTE AUTO 9.27 K/uL (1.80-7.70); NEUTROPHILS PERCENT AUTO 85.5 % (41.0-71.0); PLATELET COUNT,PLT 135 K/uL (150-400); RED BLOOD CELL COUNT 4.31 M/uL (4.52-5.90); WHITE BLOOD CELL COUNT,WBC 10.83 K/uL (3.9-11.3)
[2023-09-09 06:23] LABS: CALCIUM 9.2 mg/dL (8.5-10.1); CARBON DIOXIDE,CO2 39.2 mmol/L (21.0-32.0); CREATININE 1.6 mg/dL (0.8-1.3); DIGOXIN 3.8 ng/mL (0.9-2.0); EST CRCL DRUG DOSING (CG) 44.39 mL/min; POTASSIUM,K 5.2 mmol/L (3.5-5.1)
[2023-09-10] MEDS ORDERED: Digoxin 125 MCG Tab PO SCH (09:00)
== END 2023-09-09 13:08 | disposition home health service (06) | DRG 291 ==
LOC: MW.ED 13:09 → UNDOADMOB 16:56 → MW.MS 16:56 → OBSVTOIN 21:37 → MW.ICU 21:38 → MW.MS 09-06 13:16
PROVIDERS: ADMIT Internal Medicine; ATTEND Internal Medicine
DX: I11.0 Hypertensive heart disease with heart failure (principal); I50.31 Acute diastolic (congestive) heart failure; J18.9 Pneumonia, unspecified organism; J96.21 Acute and chronic respiratory failure with hypoxia; J96.22 Acute and chronic respiratory failure with hypercapnia; J44.1 Chronic obstructive pulmonary disease with (acute) exacerbation; J44.0 Chronic obstructive pulmonary disease with (acute) lower respiratory infection; N17.9 Acute kidney failure, unspecified; E87.20 Acidosis, unspecified; Z66 Do not resuscitate; F32.A Depression, unspecified; I07.1 Rheumatic tricuspid insufficiency; I48.0 Paroxysmal atrial fibrillation; G89.29 Other chronic pain; M54.9 Dorsalgia, unspecified; E87.5 Hyperkalemia; E78.2 Mixed hyperlipidemia; E66.01 Morbid (severe) obesity due to excess calories; Z88.0 Allergy status to penicillin; Z79.51 Long term (current) use of inhaled steroids; Z99.81 Dependence on supplemental oxygen; Z79.01 Long term (current) use of anticoagulants; Z68.39 Body mass index [BMI] 39.0-39.9, adult
CPT/HCPCS: 0241U; 36415; 36600; 51701; 51702; 51798; 70450; 70450-26; 71045; 71045-26; 71250; 71250-26; 80048; 80053; 80061; 80162; 81001; 82570; 82803; 82947; 83605; 83735; 83880; 84132; 84300; 84443; 84484; 85025; 85610; 87040; 93005; 93010; 93306; 94640; 94660; 96365; 96367; 96372; 96375; 96376; 97110-GP; 97162-GP; 97530-GP; 99285; 99285-25; A9270-GY; C9113; G0378; J0282; J0456; J0696; J1160; J1650; J1815-GY; J1940; J1956; J2405; J2920; J2930; J3490; J7040; J7050; J7620-GY

== ENCOUNTER 2023-09-10 11:47 | Inpatient (IN) | payer MEDICARE ==
[2023-09-10] MEDS ORDERED: Magnesium Sulfate (4.06 MEQ/ML) 5 GM/10 ML SDV IV STA (11:52)
[2023-09-10] MEDS: Albuterol 0.083% 2.5 MG/3 ML Neb Soln NEB ONE (11:56)
[2023-09-10] MEDS: Furosemide 40 MG/4 ML VIAL IVPUSH ONE (12:07)
[2023-09-10] MEDS: Albuterol/Ipratropium 3.0-0.5 MG/3 ML Neb Soln NEB ONE (12:08)
[2023-09-10] MEDS: methylPREDNISolone Sodium Succinate 125 MG/2 ML SDV IVPUSH ONE (12:08)
[2023-09-10] MEDS: Magnesium Sulfate/Water 2 GM in Premix Bag 1 BAG IV ONE (12:17)
[2023-09-10 12:19] LABS: APPEARANCE,URINE SLT CLOUDY; BILIRUBIN,URINE NEGATIVE (NEGATIVE); GLUCOSE,URINE NEGATIVE (NEGATIVE); KETONES,URINE NEGATIVE (NEGATIVE); LEUKOCYTE ESTERASE,URINE TRACE (NEGATIVE); NITRITE,URINE NEGATIVE (NEGATIVE); OCCULT BLOOD,URINE LARGE (NEGATIVE); PH,URINE 5.5 (5.0-8.0); PROTEIN,URINE TRACE mg/dL (NEGATIVE); UROBILINOGEN,URINE 0.2 EU/dL (<2.0)
[2023-09-10 12:22] LABS: COLOR,URINE DARK YELLOW
[2023-09-10 12:28] LABS: BACTERIA,URINE RARE (NEGATIVE); EPITHELIAL CELLS,URINE RARE (NONE-FEW); RBC,URINE 15-20 (0-2/HPF)
[2023-09-10 12:37] LABS: BASE EXCESS ARTERIAL 12.2 (-2.0-3.0); BICARBONATE,ARTERIAL 38 mEq/L (22-26); PCO2 ARTERIAL 51 mmHG (35-45); PO2 ARTERIAL 75 mmHG (80-105)
[2023-09-10 12:54] LABS: HEMATOCRIT 41.9 % (42.0-52.0); HEMOGLOBIN 12.8 g/dL (14.0-18.0); MEAN CORPUSCULAR HEMOGLOBIN 27.9 pg (28.0-32.0); MEAN CORPUSCULAR HGB CONC 30.5 g/dL (32.0-36.0); MEAN CORPUSCULAR VOLUME 91.5 fL (83.0-99.0); MEAN PLATELET VOLUME 11.6 fL (9.4-12.4); PLATELET COUNT,PLT 185 K/uL (150-400); RED BLOOD CELL COUNT 4.58 M/uL (4.52-5.90); WHITE BLOOD CELL COUNT,WBC 17.08 K/uL (3.9-11.3)
[2023-09-10 13:17] LABS: A/G RATIO 1.1 (0.9-1.6); ALBUMIN 2.9 g/dL (3.4-5.0); CALCIUM 9.1 mg/dL (8.5-10.1); CARBON DIOXIDE,CO2 37.1 mmol/L (21.0-32.0); CREATININE 1.6 mg/dL (0.8-1.3); EST CRCL DRUG DOSING (CG) 44.39 mL/min; MAGNESIUM 2.2 mg/dL (1.8-2.4); POTASSIUM,K 4.9 mmol/L (3.5-5.1); PROTEIN TOTAL,TP 5.5 g/dL (6.4-8.2)
[2023-09-10 13:32] LABS: BAND ABSOLUTE MAN 0.17; BAND PERCENT MAN 1 %; EOSINOPHILS ABSOLUTE MAN 0.34 K/uL (0.00-0.45); EOSINOPHILS PERCENT MAN 2 % (0-6); LYMPHOCYTES ABSOLUTE MAN 0.51 K/uL (1.00-4.80); LYMPHOCYTES PERCENT MAN 3 % (24-44); METAMYELOCYTE ABSOLUTE MAN 0.17; METAMYELOCYTE PERCENT MAN 1 %; MONOCYTES ABSOLUTE MAN 0.85 K/uL (0.00-0.80); MONOCYTES PERCENT MAN 5 % (0-8); SEG NEUTROPHILS ABSOLUTE MAN 15.03 K/uL (1.80-7.70); SEG NEUTROPHILS PERCENT MAN 88 % (41-71)
[2023-09-10 13:45] LABS: CORONAVIRUS COVID-19 NAA NEGATIVE (NEGATIVE); INFLUENZA A NAA NEGATIVE (NEGATIVE); INFLUENZA B NAA NEGATIVE (NEGATIVE); RESPIRATORY SYNCYTIAL VIR NAA NEGATIVE (NEGATIVE)
[2023-09-10] MEDS: Cefepime 2 GM in Sodium Chloride 0.9% 50 ML IV ONE (14:07)
[2023-09-10] MEDS: LORazepam 2 MG/ML SDV IVPUSH ONE (15:27)
[2023-09-10] MEDS: Albuterol/Ipratropium 3.0-0.5 MG/3 ML Neb Soln NEB SCH (19:05)
[2023-09-10] MEDS: Cefepime 1 GM in Sodium Chloride 0.9% 50 ML IV SCH (22:01)
[2023-09-10] MEDS ORDERED: Acetaminophen 325 MG Tab PO PRN (22:51)
[2023-09-10] MEDS ORDERED: Sodium Chloride 0.9% 20 ML SDV IV PRN (22:51)
[2023-09-10] MEDS ORDERED: Ondansetron 4 MG/2 ML SDV IVPUSH PRN (22:51)
[2023-09-10] MEDS ORDERED: Sodium Chloride 0.9% 10 ML Syringe FLUSH PRN (22:51)
[2023-09-10] MEDS ORDERED: Sodium Chloride 0.9% 2.5 ML Syringe FLUSH PRN (22:51)
[2023-09-10] MEDS ORDERED: Polyethylene Glycol 3350 Powder 17 GM Packet PO PRN (22:51)
[2023-09-10] MEDS: Pantoprazole 40 MG in Sodium Chloride 0.9% 10 ML IVPUSH SCH (23:19)
[2023-09-10] MEDS: Apixaban 5 MG Tab PO SCH (23:20)
[2023-09-10] MEDS: Pravastatin 40 MG Tab PO SCH (23:20)
[2023-09-10] MEDS: Metoprolol Tartrate 50 MG Tab PO SCH (23:20)
[2023-09-11 06:11] LABS: HEMATOCRIT 37.4 % (42.0-52.0); HEMOGLOBIN 11.6 g/dL (14.0-18.0); IMMATURE GRAN ABSOLUTE AUTO 0.07 K/uL (0.00-0.05); IMMATURE GRAN PERCENT AUTO 0.6 % (0.0-0.4); LYMPHOCYTES ABSOLUTE AUTO 0.33 K/uL (1.00-4.80); LYMPHOCYTES PERCENT AUTO 2.7 % (24.0-44.0); MEAN CORPUSCULAR HEMOGLOBIN 28.2 pg (28.0-32.0); MEAN CORPUSCULAR VOLUME 90.8 fL (83.0-99.0); MEAN PLATELET VOLUME 11.5 fL (9.4-12.4); MONOCYTES ABSOLUTE AUTO 0.82 K/uL (0.00-0.80); MONOCYTES PERCENT AUTO 6.7 % (0.0-8.0); NEUTROPHILS ABSOLUTE AUTO 10.96 K/uL (1.80-7.70); PLATELET COUNT,PLT 183 K/uL (150-400); RED BLOOD CELL COUNT 4.12 M/uL (4.52-5.90); WHITE BLOOD CELL COUNT,WBC 12.18 K/uL (3.9-11.3)
[2023-09-11 06:41] LABS: CALCIUM 9.1 mg/dL (8.5-10.1); CREATININE 1.7 mg/dL (0.8-1.3); EST CRCL DRUG DOSING (CG) 41.78 mL/min; MAGNESIUM 2.5 mg/dL (1.8-2.4)
[2023-09-11] MEDS: Apixaban 5 MG Tab PO SCH (08:34)
[2023-09-11] MEDS: Amiodarone 200 MG Tab PO SCH (08:34)
[2023-09-11] MEDS: Sertraline 100 MG Tab PO SCH (08:34)
[2023-09-11] MEDS: Digoxin 125 MCG Tab PO SCH (08:34)
[2023-09-11] MEDS: Formoterol/Mometasone 200-5 MCG 8.8 GM Inhaler INH SCH (08:35)
[2023-09-11] MEDS: Fluticasone NASAL Spray 16 GM Bottle NASBOTH SCH (08:35)
[2023-09-11] MEDS: Cefepime 1 GM in Sodium Chloride 0.9% 50 ML IV SCH (16:35)
[2023-09-12] MEDS: Albuterol/Ipratropium 3.0-0.5 MG/3 ML Neb Soln NEB PRN (03:01)
[2023-09-12] MEDS: Pantoprazole 40 MG Tab.CR PO SCH (05:43)
[2023-09-12 07:13] LABS: BASOPHILS ABSOLUTE AUTO 0.02 K/uL (0.00-0.20); BASOPHILS PERCENT AUTO 0.1 % (0.0-1.0); EOSINOPHILS ABSOLUTE AUTO 0.16 K/uL (0.00-0.45); HEMOGLOBIN 11.5 g/dL (14.0-18.0); IMMATURE GRAN ABSOLUTE AUTO 0.14 K/uL (0.00-0.05); IMMATURE GRAN PERCENT AUTO 0.9 % (0.0-0.4); LYMPHOCYTES ABSOLUTE AUTO 0.82 K/uL (1.00-4.80); MEAN CORPUSCULAR HEMOGLOBIN 28.1 pg (28.0-32.0); MEAN CORPUSCULAR HGB CONC 29.5 g/dL (32.0-36.0); MEAN CORPUSCULAR VOLUME 95.4 fL (83.0-99.0); MEAN PLATELET VOLUME 11.9 fL (9.4-12.4); MONOCYTES ABSOLUTE AUTO 1.33 K/uL (0.00-0.80); MONOCYTES PERCENT AUTO 8.1 % (0.0-8.0); NEUTROPHILS ABSOLUTE AUTO 13.98 K/uL (1.80-7.70); NEUTROPHILS PERCENT AUTO 84.9 % (41.0-71.0); PLATELET COUNT,PLT 169 K/uL (150-400); RED BLOOD CELL COUNT 4.09 M/uL (4.52-5.90); WHITE BLOOD CELL COUNT,WBC 16.45 K/uL (3.9-11.3)
[2023-09-12 07:33] LABS: CALCIUM 8.9 mg/dL (8.5-10.1); CARBON DIOXIDE,CO2 37.6 mmol/L (21.0-32.0); CREATININE 1.6 mg/dL (0.8-1.3); EST CRCL DRUG DOSING (CG) 44.39 mL/min; MAGNESIUM 2.3 mg/dL (1.8-2.4); POTASSIUM,K 4.2 mmol/L (3.5-5.1)
== END 2023-09-12 14:00 | disposition home health service (06) | DRG 690 ==
LOC: MW.ED 11:47 → MW.MS 16:23
PROVIDERS: ADMIT Family Medicine; ATTEND Family Medicine
DX: R09.02 Hypoxemia (principal); N39.0 Urinary tract infection, site not specified; I10 Essential (primary) hypertension; N30.01 Acute cystitis with hematuria; J45.909 Unspecified asthma, uncomplicated; I48.19 Other persistent atrial fibrillation; I50.32 Chronic diastolic (congestive) heart failure; J44.9 Chronic obstructive pulmonary disease, unspecified; I11.0 Hypertensive heart disease with heart failure; I48.91 Unspecified atrial fibrillation; G89.29 Other chronic pain; F17.200 Nicotine dependence, unspecified, uncomplicated; M54.9 Dorsalgia, unspecified; I27.20 Pulmonary hypertension, unspecified; F32.A Depression, unspecified; E78.00 Pure hypercholesterolemia, unspecified; R53.83 Other fatigue; G47.30 Sleep apnea, unspecified; E78.2 Mixed hyperlipidemia; E66.01 Morbid (severe) obesity due to excess calories; Z68.39 Body mass index [BMI] 39.0-39.9, adult; Z79.51 Long term (current) use of inhaled steroids; Z79.899 Other long term (current) drug therapy; Z88.0 Allergy status to penicillin; Z99.81 Dependence on supplemental oxygen
CPT/HCPCS: 0241U; 36415; 36600; 71045; 71045-26; 80048; 80053; 80162; 81001; 82803; 83605; 83735; 83880; 84484; 85025; 87040; 87086; 93005; 93010; 94640; 96365; 96367; 96375; 97161-GP; 99223; 99232; 99238; 99285; 99285-25; A9270-GY; C9113; J0692; J1940; J2060; J2930; J3475; J3490; J7620-GY

== ENCOUNTER 2023-09-14 09:23 | Observation (INO) | payer MEDICARE ==
[2023-09-14] MEDS: Albuterol/Ipratropium 3.0-0.5 MG/3 ML Neb Soln NEB STA (10:46)
[2023-09-14] MEDS: methylPREDNISolone Sodium Succinate 125 MG/2 ML SDV IVPUSH STA (10:46)
[2023-09-14] MEDS: Furosemide 40 MG/4 ML VIAL IVPUSH STA (10:46)
[2023-09-14] MEDS: Sodium Chloride 0.9% 2.5 ML Syringe FLUSH PRN (10:47)
[2023-09-14] MEDS: Sodium Chloride 0.9% 10 ML Syringe FLUSH PRN (10:47)
[2023-09-14 11:05] LABS: BASOPHILS ABSOLUTE AUTO 0.01 K/uL (0.00-0.20); BASOPHILS PERCENT AUTO 0.1 % (0.0-1.0); EOSINOPHILS ABSOLUTE AUTO 0.09 K/uL (0.00-0.45); EOSINOPHILS PERCENT AUTO 0.8 % (0.0-6.0); HEMATOCRIT 36.6 % (42.0-52.0); HEMOGLOBIN 11.3 g/dL (14.0-18.0); IMMATURE GRAN ABSOLUTE AUTO 0.07 K/uL (0.00-0.05); IMMATURE GRAN PERCENT AUTO 0.6 % (0.0-0.4); LYMPHOCYTES ABSOLUTE AUTO 0.54 K/uL (1.00-4.80); MEAN CORPUSCULAR HEMOGLOBIN 28.3 pg (28.0-32.0); MEAN CORPUSCULAR HGB CONC 30.9 g/dL (32.0-36.0); MEAN CORPUSCULAR VOLUME 91.7 fL (83.0-99.0); MEAN PLATELET VOLUME 10.7 fL (9.4-12.4); MONOCYTES ABSOLUTE AUTO 0.93 K/uL (0.00-0.80); MONOCYTES PERCENT AUTO 8.6 % (0.0-8.0); NEUTROPHILS ABSOLUTE AUTO 9.17 K/uL (1.80-7.70); NEUTROPHILS PERCENT AUTO 84.9 % (41.0-71.0); PLATELET COUNT,PLT 150 K/uL (150-400); RED BLOOD CELL COUNT 3.99 M/uL (4.52-5.90); WHITE BLOOD CELL COUNT,WBC 10.81 K/uL (3.9-11.3)
[2023-09-14 11:09] LABS: BASE EXCESS VENOUS 13.5 (-2.0-3.0); BICARBONATE,VENOUS 41 mEq/L (23-28); PCO2 VENOUS 66 mmHG (41-51)
[2023-09-14] MEDS: Apixaban 5 MG Tab PO STA (11:14)
[2023-09-14 11:15] LABS: APPEARANCE,URINE CLEAR; BILIRUBIN,URINE NEGATIVE (NEGATIVE); COLOR,URINE DARK YELLOW; GLUCOSE,URINE NEGATIVE (NEGATIVE); KETONES,URINE NEGATIVE (NEGATIVE); LEUKOCYTE ESTERASE,URINE TRACE (NEGATIVE); NITRITE,URINE NEGATIVE (NEGATIVE); OCCULT BLOOD,URINE LARGE (NEGATIVE); PH,URINE 5.5 (5.0-8.0); PROTEIN,URINE 30 mg/dL (NEGATIVE); UROBILINOGEN,URINE 0.2 EU/dL (<2.0)
[2023-09-14 11:24] LABS: BACTERIA,URINE RARE (NEGATIVE); EPITHELIAL CELLS,URINE RARE (NONE-FEW); FINE GRANULAR CASTS,URINE 0-1 (NEGATIVE); HYALINE CASTS,URINE 0-1 (0-2/LPF); RBC,URINE 20-30 (0-2/HPF)
[2023-09-14 11:34] LABS: INR 1.2 (0.86-1.11)
[2023-09-14 11:44] LABS: PO2 VENOUS < 30 mmHG
[2023-09-14 11:45] LABS: ALBUMIN 2.8 g/dL (3.4-5.0); BILIRUBIN TOTAL 1.2 mg/dL (0.2-1.0); CALCIUM 8.9 mg/dL (8.5-10.1); CARBON DIOXIDE,CO2 34.9 mmol/L (21.0-32.0); CREATININE 1.4 mg/dL (0.8-1.3); EST CRCL DRUG DOSING (CG) 50.73 mL/min; POTASSIUM,K 3.5 mmol/L (3.5-5.1); PROTEIN TOTAL,TP 5.6 g/dL (6.4-8.2)
[2023-09-14 11:51] LABS: DIGOXIN 0.8 ng/mL (0.9-2.0); MAGNESIUM 2.2 mg/dL (1.8-2.4)
[2023-09-14 12:27] LABS: CORONAVIRUS COVID-19 NAA NEGATIVE (NEGATIVE); INFLUENZA A NAA NEGATIVE (NEGATIVE); INFLUENZA B NAA NEGATIVE (NEGATIVE); RESPIRATORY SYNCYTIAL VIR NAA NEGATIVE (NEGATIVE)
[2023-09-14] MEDS ORDERED: Acetaminophen 325 MG Tab PO PRN (14:21)
[2023-09-14] MEDS ORDERED: Sodium Chloride 0.9% 10 ML Syringe FLUSH PRN (14:21)
[2023-09-14] MEDS ORDERED: Sodium Chloride 0.9% 2.5 ML Syringe FLUSH PRN (14:21)
[2023-09-14] MEDS ORDERED: Ondansetron 4 MG/2 ML SDV IVPUSH PRN (14:21)
[2023-09-14] MEDS ORDERED: Fluticasone NASAL Spray 16 GM Bottle NASBOTH PRN (14:59)
[2023-09-14] MEDS: Metoprolol Tartrate 50 MG Tab PO SCH (15:05)
[2023-09-14] MEDS: Digoxin 125 MCG Tab PO SCH (15:05)
[2023-09-14] MEDS: Amiodarone 200 MG Tab PO SCH (15:05)
[2023-09-14] MEDS ORDERED: Diltiazem 25 MG/5 ML SDV IVPUSH PRN (15:39)
[2023-09-14] MEDS: Apixaban 5 MG Tab PO SCH (20:14)
[2023-09-14] MEDS: Pravastatin 40 MG Tab PO SCH (20:15)
[2023-09-14] MEDS: FORMOTEROL FUMARATE INH SCH (20:23)
[2023-09-14] MEDS: BUDESONIDE INH SCH (20:23)
[2023-09-15 06:15] LABS: HEMATOCRIT 35.9 % (42.0-52.0); HEMOGLOBIN 10.9 g/dL (14.0-18.0); IMMATURE GRAN ABSOLUTE AUTO 0.08 K/uL (0.00-0.05); IMMATURE GRAN PERCENT AUTO 0.8 % (0.0-0.4); LYMPHOCYTES ABSOLUTE AUTO 0.42 K/uL (1.00-4.80); LYMPHOCYTES PERCENT AUTO 4.2 % (24.0-44.0); MEAN CORPUSCULAR HEMOGLOBIN 28.3 pg (28.0-32.0); MEAN CORPUSCULAR HGB CONC 30.4 g/dL (32.0-36.0); MEAN CORPUSCULAR VOLUME 93.2 fL (83.0-99.0); MEAN PLATELET VOLUME 11.3 fL (9.4-12.4); MONOCYTES PERCENT AUTO 5.1 % (0.0-8.0); NEUTROPHILS ABSOLUTE AUTO 8.89 K/uL (1.80-7.70); NEUTROPHILS PERCENT AUTO 89.9 % (41.0-71.0); PLATELET COUNT,PLT 156 K/uL (150-400); RED BLOOD CELL COUNT 3.85 M/uL (4.52-5.90); WHITE BLOOD CELL COUNT,WBC 9.89 K/uL (3.9-11.3)
[2023-09-15 06:37] LABS: CALCIUM 8.9 mg/dL (8.5-10.1); CARBON DIOXIDE,CO2 35.5 mmol/L (21.0-32.0); CREATININE 1.6 mg/dL (0.8-1.3); EST CRCL DRUG DOSING (CG) 44.39 mL/min; MAGNESIUM 2.2 mg/dL (1.8-2.4); PHOSPHORUS 4.9 mg/dL (2.6-4.7); POTASSIUM,K 4.6 mmol/L (3.5-5.1)
[2023-09-15] MEDS: Albuterol/Ipratropium 3.0-0.5 MG/3 ML Neb Soln NEB PRN (08:35)
[2023-09-15] MEDS: predniSONE 20 MG Tab PO SCH (08:55)
[2023-09-15] MEDS: Sertraline 100 MG Tab PO SCH (08:56)
[2023-09-15] MEDS: Pantoprazole 40 MG Tab.CR PO SCH (09:01)
== END 2023-09-15 12:59 | disposition home health service (06) ==
LOC: MW.ED 09:23 → MW.MS 13:54
PROVIDERS: ADMIT Family Medicine; ATTEND Family Medicine
DX: J96.21 Acute and chronic respiratory failure with hypoxia (principal); J44.9 Chronic obstructive pulmonary disease, unspecified; I11.0 Hypertensive heart disease with heart failure; I50.9 Heart failure, unspecified; I48.19 Other persistent atrial fibrillation; R26.81 Unsteadiness on feet; E78.2 Mixed hyperlipidemia; E66.01 Morbid (severe) obesity due to excess calories; Z99.81 Dependence on supplemental oxygen; J94.1 Fibrothorax; Z79.01 Long term (current) use of anticoagulants; Z79.899 Other long term (current) drug therapy; Z88.0 Allergy status to penicillin
CPT/HCPCS: 0241U; 36415; 71045; 80048; 80053; 80162; 81001; 82803; 83690; 83735; 84100; 84484; 85025; 85610; 87086; 96374; 96375; 97161; 99285; A9270; J1940; J2930; J3490; 93010; 99222; 99238; 99284; G0378; J7620-GY

== ENCOUNTER 2023-09-19 18:31 | Emergency (ER) | payer MEDICARE ==
[2023-09-19 18:55] LABS: BASOPHILS ABSOLUTE AUTO 0.01 K/uL (0.00-0.20); BASOPHILS PERCENT AUTO 0.1 % (0.0-1.0); HEMATOCRIT 36.5 % (42.0-52.0); HEMOGLOBIN 11.4 g/dL (14.0-18.0); IMMATURE GRAN ABSOLUTE AUTO 0.09 K/uL (0.00-0.05); IMMATURE GRAN PERCENT AUTO 0.7 % (0.0-0.4); LYMPHOCYTES ABSOLUTE AUTO 0.38 K/uL (1.00-4.80); LYMPHOCYTES PERCENT AUTO 2.9 % (24.0-44.0); MEAN CORPUSCULAR HEMOGLOBIN 28.6 pg (28.0-32.0); MEAN CORPUSCULAR HGB CONC 31.2 g/dL (32.0-36.0); MEAN CORPUSCULAR VOLUME 91.5 fL (83.0-99.0); MEAN PLATELET VOLUME 11.6 fL (9.4-12.4); MONOCYTES ABSOLUTE AUTO 0.36 K/uL (0.00-0.80); MONOCYTES PERCENT AUTO 2.7 % (0.0-8.0); NEUTROPHILS PERCENT AUTO 93.6 % (41.0-71.0); PLATELET COUNT,PLT 153 K/uL (150-400); RED BLOOD CELL COUNT 3.99 M/uL (4.52-5.90); WHITE BLOOD CELL COUNT,WBC 13.24 K/uL (3.9-11.3)
[2023-09-19 19:02] LABS: BASE EXCESS VENOUS 7.2 (-2.0-3.0); PH,VENOUS 7.27 (7.31-7.41)
[2023-09-19] MEDS: Nitroglycerin/D5W 25 MG/250 ML BOTTLE IV SCH (19:08)
[2023-09-19] MEDS: Furosemide 40 MG/4 ML VIAL ONE (19:11)
[2023-09-19] MEDS: Furosemide 40 MG/4 ML VIAL IVPUSH STA (19:11)
[2023-09-19 19:17] LABS: INR 1.24 (0.86-1.11)
[2023-09-19] MEDS: cefTRIAXone 2 GM in Sodium Chloride 0.9% 50 ML IV ONE (19:29)
[2023-09-19 19:38] LABS: A/G RATIO 0.9 (0.9-1.6); ALANINE AMINOTRANSFERASE,ALT 75 IU/L (14-63); ALBUMIN 3.2 g/dL (3.4-5.0); ALKALINE PHOSPHATASE 94 U/L (46-116); ASPARTATE AMNIOTRANSFERASE,AST 28 IU/L (15-37); BILIRUBIN TOTAL 0.9 mg/dL (0.2-1.0); BLOOD UREA NITROGEN,BUN 51 mg/dL (7.0-18.0); CALCIUM 8.9 mg/dL (8.5-10.1); CARBON DIOXIDE,CO2 34.7 mmol/L (21.0-32.0); CHLORIDE,CL 105 mmol/L (98-107); CREATININE 1.9 mg/dL (0.8-1.3); GLUCOSE RANDOM 161 mg/dL (74-106); LACTIC ACID 1.2 mmol/L (0.4-2.0); MAGNESIUM 2.2 mg/dL (1.8-2.4); POTASSIUM,K 4.2 mmol/L (3.5-5.1); PROTEIN TOTAL,TP 6.6 g/dL (6.4-8.2); SODIUM,NA 146 mmol/L (136-148)
[2023-09-19 19:39] LABS: ESTIMATED GFR 36 mL/min (>60)
[2023-09-19 20:06] LABS: BASE EXCESS ARTERIAL 7.1 (-2.0-3.0); BICARBONATE,ARTERIAL 36 mEq/L (22-26); PCO2 ARTERIAL 80 mmHG (35-45); PO2 ARTERIAL 94 mmHG (80-105)
[2023-09-19] MEDS: Ketamine 500 mg/10 ML MDV IV ONE (20:30)
[2023-09-19] MEDS: Rocuronium 100 MG/10 ML MDV IVPUSH ONE (20:31)
[2023-09-19] MEDS: propofoL 100 ML IV SCH (20:37)
[2023-09-19 20:47] LABS: CORONAVIRUS COVID-19 NAA NEGATIVE (NEGATIVE); INFLUENZA A NAA NEGATIVE (NEGATIVE); INFLUENZA B NAA NEGATIVE (NEGATIVE); RESPIRATORY SYNCYTIAL VIR NAA NEGATIVE (NEGATIVE)
[2023-09-19] MEDS: fentaNYL/Normal Saline 250 ML ONE (20:47)
[2023-09-19] MEDS: propofoL 100 ML ONE (20:48)
[2023-09-19] MEDS: Norepinephrine Bit/D5W Premix 250 ML IV SCH (21:00)
[2023-09-19] MEDS: Norepinephrine Bit/D5W Premix 250 ML ONE (21:15)
[2023-09-19] MEDS: fentaNYL/Normal Saline 2,500 MCG in Premix Bag 1 BAG IV PRN (21:15)
[2023-09-19 21:54] LABS: BICARBONATE,ARTERIAL 35 mEq/L (22-26); PCO2 ARTERIAL 43 mmHG (35-45); PO2 ARTERIAL 231 mmHG (80-105)
== END 2023-09-19 21:56 ==
LOC: MW.ED 18:31
DX: I50.1 Left ventricular failure, unspecified (principal); J96.00 Acute respiratory failure, unspecified whether with hypoxia or hypercapnia; I11.0 Hypertensive heart disease with heart failure; I50.9 Heart failure, unspecified; E78.00 Pure hypercholesterolemia, unspecified; Z79.899 Other long term (current) drug therapy; Z88.0 Allergy status to penicillin
CPT/HCPCS: 0241U; 31500; 36415; 36600; 43752; 51702; 71045; 80053; 82803; 83605; 83735; 83880; 84484; 85025; 85610; 85730; 87040; 96365; 96366; 96367; 96368; 96375; 99285; J0696; J1940; J2305; J2704; J3490; 93010; 99291